=== PATIENT | female | born 1965 | race Caucasian/White ===

== ENCOUNTER 2017-03-26 13:50 | Emergency (ER) | payer OTHER | END 2017-03-26 18:12 | disposition home or self-care (01) | LOC: ERS 13:50 | DX: M54.16 Radiculopathy, lumbar region (principal); F17.210 Nicotine dependence, cigarettes, uncomplicated; Z79.899 Other long term (current) drug therapy | CPT/HCPCS: 99283 ==

== ENCOUNTER 2017-03-27 10:20 | Outpatient (CLI) | payer OTHER | END 2017-03-27 10:21 | disposition home or self-care (01) | LOC: BICRAD 10:20 | PROVIDERS: ATTEND Internal Medicine | DX: M25.562 Pain in left knee (principal); M25.762 Osteophyte, left knee ==

== ENCOUNTER 2017-04-09 12:22 | Outpatient (CLI) | payer OTHER ==
--- NOTE | 2017-04-09 15:49 | MRI ---
MRI LUMBAR SPINE NONCONTRAST: History: Low back pain with left leg radiculopathy. FINDINGS: Radiographs are not available for direct correlation, therefore, the lower lumbar type vertebrae will be designated at L5 with the remaining numbered accordingly. The conus medullaris has a normal appearance. There is disc desiccation of intervertebral discs and p rominent multilevel discogenic endplate changes. T12-L1, L1-2: Mild osteophytosis is present. The central canal and neural foramina are patent. L2-3: Posterior disc bulge, along with facet joint hypertrophy and ligamentous ==== result in mild st enosis of the central canal and each neural foramen. L3-4: Posterior disc bulge, along with facet joint hypertrophy and ligamentous thickening results in mild stenosis of the central canal. There is moderate right and mild left foraminal stenosis. L4-5: Minimal disc bulge is present. The thecal sac remains patent. There is moderate right and mild left foraminal stenosis. L5-S1: Minimal disc bulge is present. The thecal sac remains patent. Degenerative changes result in s evere bilateral foraminal stenosis. IMPRESSION: Prominent multilevel degenerative changes throughout the lumbar spine. Stenoses are most severe at ea ch neural foramen of the lumbosacral junction. Clinical correlation regarding each L5 dermatome is re quired. POS: [facility]
== END 2017-04-09 12:23 | disposition home or self-care (01) ==
LOC: SCSMRI 12:22
PROVIDERS: ATTEND Internal Medicine
DX: M47.26 Other spondylosis with radiculopathy, lumbar region (principal); M48.061 Spinal stenosis, lumbar region without neurogenic claudication
CPT/HCPCS: 72148

== ENCOUNTER 2017-07-20 14:37 | Outpatient (CLI) | payer OTHER | END 2017-07-20 14:38 | disposition home or self-care (01) | LOC: BICRAD 14:37 | PROVIDERS: ATTEND Neurological Surgery | DX: M47.26 Other spondylosis with radiculopathy, lumbar region (principal) | CPT/HCPCS: 72100 ==

== ENCOUNTER 2017-09-14 14:00 | Emergency (ER) | payer OTHER ==
--- NOTE | 2017-09-14 15:33 | CT ---
CT CERVICAL SPINE: HISTORY: Bilateral shoulder pain and neck pain after fall. FINDINGS: Noncontrast-enhanced CT images cervical spine demonstrate a loss of the normal lordotic curvature of the cervical spine. Anterior and posterior osteophytes are seen at C5-6 and C6-7. This is compatibl e with changes of spondylosis. The neural foramen are patent. IMPRESSION: C5-6 and C6-7 changes of spondylosis. No acute abnormality is seen. POS: [facility]
--- NOTE | 2017-09-14 15:34 | RAD ---
RIGHT ELBOW 4 VIEWS: Date: 09/14/17 HISTORY: Elbow injury. FINDINGS: There is some minimal enthesophyte formation of the epicondyles. There are no signs of fracture, disl ocation, or joint effusion. IMPRESSION: No acute findings. POS: [facility]
--- NOTE | 2017-09-14 15:34 | RAD ---
3 VIEWS LEFT SHOULDER: Date: 09/14/17 HISTORY: 52-year-old with left shoulder pain after injury. FINDINGS: AP internally, externally, and scapular Y views of left shoulder obtained. Three views of the left shoulder demonstrate no evidence of left shoulder fractures, subluxations, or bony lesions. IMPRESSION: Normal 3 views left shoulder. POS: [facility]
--- NOTE | 2017-09-14 15:35 | RAD ---
RIGHT KNEE 4 VIEWS: Date: 09/14/17 HISTORY: Bilateral knee pain. FINDINGS: No fracture, dislocation, or bony destruction is identified. Joint spaces are fairly well maintained. IMPRESSION: No acute process. POS: [facility]
--- NOTE | 2017-09-14 15:37 | RAD ---
3 VIEWS LUMBAR SPINE: Date: 09/14/17 COMPARISON: None. HISTORY: Pain, fall. FINDINGS: Five lumbar-type vertebral bodies are present with intact pedicles on frontal imaging. There is promi nent right lateral osteophyte formation at L3-4 and to a lesser degree L2-3 and L4-5. The lateral exa m demonstrates lower lumbar spine facet hypertrophy at L4-5 and L5-S1. There is multilevel disc space narrowing and anterior osteophyte formation, including L2-3, L3-4, L4-5, and L5-S1. No acute fractu re is evident. IMPRESSION: Multilevel degenerative change with no acute fracture or dislocation seen. POS: [facility]
--- NOTE | 2017-09-14 15:38 | RAD ---
3 VIEWS RIGHT SHOULDER: Date: 09/14/17 COMPARISON: None. HISTORY: Fall, trauma, pain. FINDINGS: There is mild degenerative change of the right AC joint. There is no widening of the AC or CC intersp eli. Postoperative anchors are seen overlying the humeral head. No acute fracture or evidence of disl ocation is seen. There is corticated osseous irregularity involving the region of the greater tuberosity suggesting re mote post-traumatic change and/or postoperative change. IMPRESSION: Chronic findings as described above. No displaced fracture or evidence of dislocation is seen. POS: [facility]
--- NOTE | 2017-09-14 15:39 | RAD ---
4 VIEWS LEFT KNEE: Date: 09/14/17 HISTORY: Fall with left knee injury. FINDINGS: AP, lateral, and both oblique views of the left knee obtained. FINDINGS: Four views of the left knee demonstrate no evidence of left knee fractures, subluxations, or bony les ions. IMPRESSION: Normal 4ivews left knee. POS: [facility]
== END 2017-09-14 15:29 | disposition home or self-care (01) ==
LOC: ERS 14:00
DX: S16.1XXA Strain of muscle, fascia and tendon at neck level, initial encounter (principal); S80.02XA Contusion of left knee, initial encounter; S80.01XA Contusion of right knee, initial encounter; S40.012A Contusion of left shoulder, initial encounter; S40.011A Contusion of right shoulder, initial encounter; M25.521 Pain in right elbow; I47.1 Supraventricular tachycardia; Z87.891 Personal history of nicotine dependence; Z79.899 Other long term (current) drug therapy; W01.10XA Fall on same level from slipping, tripping and stumbling with subsequent striking against unspecified object, initial encounter; Y92.828 Other wilderness area as the place of occurrence of the external cause
CPT/HCPCS: 72100; 72125

== ENCOUNTER 2017-09-21 05:59 | Day surgery (SDC) | payer OTHER ==
[2017-09-21 06:33] LABS: #Eosinphils 0.1 thou/uL (0.0-0.7); #Lymphocytes 1.6 thou/uL (1.20-3.40); #Monocytes 0.6 thou/uL (0.11-0.59); #Neutrophils 3.7 thou/uL (1.40-6.50); %Basophils 0.4 % (0.0-1.0); %Eosinophils 1.5 % (0.0-10.0); %Lymphocytes 26.4 % (21.0-51.0); %Monocytes 10.1 % (0.0-10.0); %Neutrophils 61.8 % (42.0-75.0); Hemoglobin 15.2 g/dL (12.0-16.0); Mean Corpuscular HGB CONC 34.6 g/dL (32.0-36.0); Mean Corpuscular Hemoglobin 33.3 pg (27.0-31.0); Mean Corpuscular Volume 96.3 fl (81.0-99.0); Mean Platelet Volume 7.6 fL (7.4-10.4); Platelet Count 175 thou/uL (130-400); RBC Distribution Width 11.4 % (11.5-14.5); Red Blood Cell (RBC) Count 4.56 mill/uL (4.20-5.40)
[2017-09-21] MEDS ORDERED: Lidocaine 1% (PF) 30 ML VIAL ONE (06:41)
[2017-09-21 07:01] LABS: Anion Gap 14 mmol/L (10-20); BUN (Urea Nitrogen) 14 mg/dL (9.8-20.1); Calc. Creatinine Clearance 0 mL/min (70-130); Calcium 9.4 mg/dL (7.8-10.44); Carbon Dioxide 26 mmol/L (22-29); Chloride 105 mmol/L (98-107); Estimated GFR-MDRD 87; Glucose 91 mg/dL (70-105); Potassium 3.5 mmol/L (3.5-5.1); Sodium 141 mmol/L (136-145)
[2017-09-21] MEDS ORDERED: Phenylephrine HCL 10 MG/ML VIAL ONE (08:41)
[2017-09-21] MEDS ORDERED: Propofol 500 MG/50 ML VIAL ONE ×3 (08:46→10:10)
[2017-09-21] MEDS ORDERED: Midazolam HCl 2 mg/2 ml Vial ONE (09:07)
[2017-09-21] MEDS ORDERED: Heparin 10,000 UNITS/1 ML VIAL ONE (09:37)
[2017-09-21] MEDS ORDERED: Isoproterenol 0.2 MG/1 ML AMP ONE (09:44)
[2017-09-21] MEDS ORDERED: Fentanyl 100 MCG/2 ML VIAL ONE (11:06)
[2017-09-21] MEDS ORDERED: PROPOFOL 200 MG/20 ML VIAL ONE (12:28)
--- NOTE | 2017-09-21 12:48 | EKG ---
Test Reason : PREOP Blood Pressure : / mmHG Vent. Rate : 070 BPM Atrial Rate : 070 BPM P-R Int : 162 ms QRS Dur : 084 ms QT Int : 398 ms P-R-T Axes : 062 086 053 degrees QTc Int : 429 ms Normal sinus rhythm Normal ECG When compared with ECG of 25-SEP-2016 13:31, Non-specific change in ST segment in Inferior leads Confirmed by PAGE LI ([id number]), international editorial producer CARL NAVARRO ([id number]) on 09/21/2017 12:47:38 PM Referred By: JJ Confirmed By:PAGE LI
--- NOTE | 2017-09-21 16:46 | EKG ---
Test Reason : POSTOP Blood Pressure : / mmHG Vent. Rate : 062 BPM Atrial Rate : 062 BPM P-R Int : 134 ms QRS Dur : 086 ms QT Int : 458 ms P-R-T Axes : 048 077 053 degrees QTc Int : 464 ms Normal sinus rhythm T wave abnormality, consider anterior ischemia Prolonged QT Abnormal ECG When compared with ECG of 21-SEP-2017 06:53, (Unconfirmed) T wave changes anteriroly more prominent anteriorly. Confirmed by PAGE LI ([id number]) on 09/21/2017 4:45:34 PM Referred By: JJ Confirmed By:PAGE LI
--- NOTE | 2017-09-21 19:13 | OP ---
DATE OF PROCEDURE: 09/21/2017 ELECTROPHYSIOLOGY STUDY AND RADIOFREQUENCY ABLATION REPORT REFERRING PHYSICIAN: Camilo Borja MD REASON FOR STUDY: Ms. Mchugh is a 52-year-old woman with recurrent narrow complex SVT on occasion is noted. PROCEDURE IN DETAIL: The patient received deep sedation by Anesthesia specialist. After adequate le bonita of sedation achieved, both femoral venous areas were prepped, draped and anesthetized using subcu taneous lidocaine. The left femoral vein was accessed using ultrasound guidance x2 with 2 short 6 an d a 7-Tristanian sheaths were introduced. Through this, a decapolar and an octapolar catheter were advan renzo to the CS and right ventricular/His bundle/right atrial area. Pacing, mapping and recording were performed in each location. Following findings were noted. Baseline cycle length 892, ND 180, QRS 75, QT 433, HV 43 milliseconds. The AV Wenckebach cycle was noted at 340 milliseconds. No preexcita tion noted. Actually, Wenckebach cycle was 300 milliseconds at baseline with concentric retrograde V A activation. AV hema ERP was 600/240. 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 Isuprel was administered at this point and with burst atrial pacing, we were able to induce tachycardia, cons ent with AV hema reentry tachycardia with very short RP interval. Following that, burst ventricular pacing was attempted that terminated the arrhythmia. At this point, the right femoral vein was also accessed with a multipurpose needle and an 8-Tristanian short sheath was introduced. Through this, a 4- mm ablation catheter was advanced to the right atrium. 3D mapping of the right atrium, His bundle ar ea and CS area was obtained with the Carto system. Following that, slow pathway modification was per formed using a total of 7 johnson were delivered. Over one mid johnson were delivered each time and junc tional beats were observed during the ablation. Following that, the induction protocol was repeated on and off either. No reinducibility of AV hema reentry tachycardia was found. The cardiac silhouette did not change throughout the study and the patient remained stable. Post-ablation on Isuprel, Wenckebach cycle length was 250 milliseconds. The AV ERP was 400/180 on Is uprel, but no evidence of slow pathway was found at this time. CONCLUSION: 1. AV hema reentry tachycardia, on Isuprel. 2. Successful slow pathway modification with inducibility of the AV hema reentry tachycardia. 3. No residual slow pathway present. 4. Normal AV hema and His-Purkinje system function pre and post-ablation. 5. No evidence of accessory pathway. 6. No change in cardiac silhouette. The patient tolerated the procedure well. PLAN: Routine postoperative care. Titrate off AV hema blockers.
== END 2017-09-21 14:10 | disposition home or self-care (01) ==
LOC: SDC 05:59
PROVIDERS: ATTEND Internal Medicine Cardiovascular Disease
DX: I47.1 Supraventricular tachycardia (principal); I10 Essential (primary) hypertension; Z88.4 Allergy status to anesthetic agent; Z88.5 Allergy status to narcotic agent; Z79.899 Other long term (current) drug therapy
CPT/HCPCS: 36415; 76942; 80048; 85025; 85610; 85730; 93005; 93010; 93613; 93621; 93623; 93653; 96374; C1730; C1769; J1644; J2001; J2250; J2370; J2704; J3010

== ENCOUNTER 2018-05-20 13:46 | Outpatient (CLI) | payer OTHER ==
--- NOTE | 2018-05-20 14:27 | RAD ---
CERVICAL SPINE THREE VIEWS: History: Cervical radiculopathy. Spinal stenosis. FINDINGS: There is loss of cervical lordosis and mild reversal. Multilevel degenerative changes are seen, most prominent at C5-6 and C6-7 levels. No fracture, subluxation or bony destruction is identified. IMPRESSION: Cervical spondylosis. POS: [facility]
--- NOTE | 2018-05-20 16:17 | MRI ---
MRI CERVICAL SPINE WITHOUT CONTRAST 05/20/18 HISTORY: Cervical spinal stenosis. COMPARISON: None. TECHNIQUE: MRI cervical spine is performed without intravenous gadolinium administration. Multisequential, multi planar imaging is performed. FINDINGS: There is straightening of the normal cervical lordosis. There is no significant STIR hyperintensity t o suggest vertebral body edema from fracture or MR evidence of ligamentous injury. There is evidence of subtle T1 hypointensity with associated T2 and STIR hyperintensity along the inferior end plate of C5 and superior end plate of C7 suggesting Modic change. Possible small Schmorl's node along the sup erior left aspect of C7 is noted. The visualized brain parenchyma, cervicomedullary junction, cervica l cord and the upper thoracic cord has a normal size and signal intensity. Partial opacification of the right mastoid air cells. C2-C3: No significant central canal stenosis. Foramina are patent. C3-C4: No significant central canal stenosis. Right neural foramen is patent. Mild left foraminal mingo rowing due to uncovertebral hypertrophy. C4-C5: No significant central canal stenosis. Foramina are patent. C5-C6: Broad based disc osteophyte complex abuts the thecal sac and effaces the ventral subarachnoid space. There is deformity of the cervical cord without cord signal abnormality. There is mild to mod erate central canal stenosis. Neural foramina are patent bilaterally. C6-C7: There is a broad based disc osteophyte complex with a small right paracentral component. Ventr al subarachnoid space is effaced. Mild mass effect upon the cervical cord. Mild central canal stenosi s. Neural foramina are patent. C7-T1: No significant central canal stenosis. Foramina are patent. IMPRESSION: Degenerative changes of the cervical spine as detailed above. POS: [facility]
== END 2018-05-20 13:47 | disposition home or self-care (01) ==
LOC: BICMRI 13:46
PROVIDERS: ATTEND Internal Medicine
DX: M47.22 Other spondylosis with radiculopathy, cervical region (principal)
CPT/HCPCS: 72040; 72141

== ENCOUNTER 2018-08-17 22:18 | Emergency (ER) | payer OTHER ==
[2018-08-17] MEDS ORDERED: Acetaminophen 500 MG TAB ONE (22:54)
--- NOTE | 2018-08-17 23:38 | ULT ---
US Venous Doppler Lt Unilat History: [Left leg pain] Comparison: None. Findings: Real-time grayscale, color, and spectral analysis left lower extremity venous system was pe rformed. The common femoral, femoral, proximal portions greater saphenous and deep femoral veins as well as of the popliteal and posterior tibial veins were interrogated. Normal flow, augmentation, and compression. Impression: No deep venous thrombosis.
[2018-08-17] MEDS ORDERED: Dexamethasone 10 MG/ML VIAL ONE (23:40)
== END 2018-08-18 00:04 | disposition home or self-care (01) ==
LOC: ERS 22:18
DX: M70.71 Other bursitis of hip, right hip (principal); M79.662 Pain in left lower leg; I47.1 Supraventricular tachycardia; M19.90 Unspecified osteoarthritis, unspecified site; F17.210 Nicotine dependence, cigarettes, uncomplicated; Z79.899 Other long term (current) drug therapy
CPT/HCPCS: 96372; J1100

== ENCOUNTER 2018-12-29 13:43 | Outpatient (CLI) | payer OTHER ==
--- NOTE | 2018-12-29 15:31 | MRI ---
MRI Lumbar Spine Noncontrast: HISTORY: Bilateral lumbar radiculopathy and lower back pain. COMPARISON: 04/09/2017 FINDINGS: Subcentimeter increased T2-weighted signal intensity foci are seen in each kidney difficult to charac terize but may represent cysts. Follow-up renal sonogram is suggested for further evaluation. Conus medullaris is normal in morphology and terminates at the T11-12 level. There findings again sug gestive of a fatty filum terminale. There is generalized heterogeneity of the bone marrow which was also present on the prior exam endpla te degenerative changes are seen at multiple levels. Rounded focus of increased T1 and T2-weighted signal intensity is seen in the L3 vertebral body which may represent a small hemangioma versus focal area of fat. T10-11, T11-12, T12-L1 levels: Mild disc osteophyte complexes are present at these levels resulting m ild effacement of the ventral aspect of the thecal sac. Neural foramina at these levels appear patent L1-2: Mild disc osteophyte complex is present. There is no significant central canal narrowing. The n eural foramina are patent L2-3: There is a mild disc osteophyte complex overall similar to the prior exam. Mild facet hypertrop hic changes are seen. Slight effacement of the anterior aspect of thecal sac. Neural foramina are patent. L3-4: Again noted is a mild disc osteophyte complex and facet hypertrophic changes. There is mild gen eralized narrowing of the central spinal canal with flattening of the anterior aspect of the thecal sac. The left neural foramen is patent with mild right-sided neural foraminal narrowing. L4-5: Mild broad-based disc osteophyte complex is again seen with facet hypertrophic changes. There i s slight flattening of the anterior aspect of the thecal sac. Mild to moderate bilateral neural foraminal narrowing is present. L5-S1: There is mild loss of intervertebral disc height. Broad-based disc aspect complex is present w ith facet hypertrophic changes noted. There is no significant narrowing of the central spinal canal, but there is severe bilateral neural foraminal narrowing again present not significantly progr essed from prior exam. IMPRESSION: 1. Multilevel degenerative changes of the lumbar spine not significantly progressed when compared to the prior study in 2017. 2. Subcentimeter hyperintense bilateral renal lesions difficult to actually characterize on this exam but may represent small renal cysts.
--- NOTE | 2018-12-29 15:32 | MMO ---
Bilateral MAMMO Bilat Screen [facility]. CLINICAL HISTORY: Patient is 53 years old and is seen for screening. The patient has the following family history of breast cancer: maternal grandmother, kidney. The patient has no personal history of cancer. VIEWS: The views performed were: bilateral craniocaudal with tomosynthesis; bilateral mediolateral oblique with tomosynthesis; and left mediolateral oblique. FILMS COMPARED: The present examination has been compared to prior imaging studies performed at [facility] on 01/27/2014, 02/16/2015 and 09/25/2015, and at [facility] on 12/30/2012. This study has been interpreted with the assistance of computer-aided detection. MAMMOGRAM FINDINGS: The breasts are heterogeneously dense, which could obscure a lesion on mammography. Benign calcifications are noted bilaterally. There are no suspicious masses, suspicious calcifications, or new areas of architectural distortion. IMPRESSION: THERE IS NO MAMMOGRAPHIC EVIDENCE OF MALIGNANCY. A ROUTINE FOLLOW-UP MAMMOGRAM IN 1 YEAR IS RECOMMENDED. THE RESULTS OF THIS EXAM WERE SENT TO THE PATIENT. ACR BI-RADS Category 2 - Benign finding MAMMOGRAPHY NOTE: 1. A negative mammogram report should not delay a biopsy if a dominant of clinically suspicious mass is present. 2. Approximately 10% to 15% of breast cancers are not detected by mammography. 3. Adenosis and dense breasts may obscure an underlying neoplasm. Reported by: OLI ELKINS MD Electonically Signed: [id number]
--- NOTE | 2018-12-29 15:48 | RAD ---
XR Lumbar Spine Min 4 View History: Lumbar spondylolisthesis Comparison: MRI same day Findings: Moderate levoscoliosis lumbar spine. Degenerative facet arthropathy L3-L5. Large bridging r ight lateral osteophytes L3-L5 with degenerative disc space height loss. No listhesis. No translation with flexion or extension. Moderate degenerative disease right SI joint. Paraspinal soft tissues are unremarkable. Impression: Mild to moderate levoscoliosis and degenerative changes. No acute osseous abnormality. No translation with flexion or extension.
== END 2018-12-29 13:44 | disposition home or self-care (01) ==
LOC: BICMAMMO 13:43
PROVIDERS: ATTEND Internal Medicine
DX: Z12.31 Encounter for screening mammogram for malignant neoplasm of breast (principal); M47.26 Other spondylosis with radiculopathy, lumbar region; M43.16 Spondylolisthesis, lumbar region; M41.9 Scoliosis, unspecified; N28.9 Disorder of kidney and ureter, unspecified; Z80.3 Family history of malignant neoplasm of breast
CPT/HCPCS: 72110; 72148; 77063; 77067

== ENCOUNTER 2019-01-07 09:32 | Outpatient (CLI) | payer OTHER ==
--- NOTE | 2019-01-07 10:42 | ULT ---
Exam: Bilateral renal ultrasound HISTORY: Disorder of the kidney COMPARISON: None FINDINGS: Right kidney: Limited evaluation the cortex due to shadowing. No obvious cortical masses. No hydronep hrosis Right kidney measurements: 6.0 x 5.1 x 10.3 cm. Left kidney: Limited evaluation the cortex due to shadowing. No obvious cortical masses. No hydroneph rosis. Left kidney measurements 4.5 x 5.0 x 8.7 cm. Urinary bladder: Decompressed. Limited evaluation the mucosa. IMPRESSION: No hydronephrosis.
== END 2019-01-07 09:33 | disposition home or self-care (01) ==
LOC: ULT 09:32
PROVIDERS: ATTEND Internal Medicine
DX: N28.9 Disorder of kidney and ureter, unspecified (principal)
CPT/HCPCS: 76770

== ENCOUNTER 2020-03-27 14:34 | Outpatient (CLI) | payer MEDICARE ==
--- NOTE | 2020-03-27 16:01 | MMO ---
Bilateral MAMMO Bilat Screen [facility]. CLINICAL HISTORY: Patient is 54 years old and is seen for screening. The patient has the following family history of breast cancer: maternal grandmother, kidney. The patient has no personal history of cancer. VIEWS: The views performed were: bilateral craniocaudal with tomosynthesis and bilateral mediolateral oblique with tomosynthesis. FILMS COMPARED: The present examination has been compared to prior imaging studies performed at [facility] on 01/27/2014, 02/16/2015, 09/25/2015 and 12/29/2018. This study has been interpreted with the assistance of computer-aided detection. MAMMOGRAM FINDINGS: The breasts are heterogeneously dense, which could obscure a lesion on mammography. There are no suspicious masses, suspicious calcifications, or new areas of architectural distortion. IMPRESSION: THERE IS NO MAMMOGRAPHIC EVIDENCE OF MALIGNANCY. A ROUTINE FOLLOW-UP MAMMOGRAM IN 1 YEAR IS RECOMMENDED. THE RESULTS OF THIS EXAM WERE SENT TO THE PATIENT. ACR BI-RADS Category 1 - Negative MAMMOGRAPHY NOTE: 1. A negative mammogram report should not delay a biopsy if a dominant of clinically suspicious mass is present. 2. Approximately 10% to 15% of breast cancers are not detected by mammography. 3. Adenosis and dense breasts may obscure an underlying neoplasm. Reported by: OLI ELKINS MD Electonically Signed: [id number]
== END 2020-03-27 14:35 | disposition home or self-care (01) ==
LOC: BICMAMMO 14:34
PROVIDERS: ATTEND Internal Medicine
DX: Z12.31 Encounter for screening mammogram for malignant neoplasm of breast (principal); Z80.3 Family history of malignant neoplasm of breast
CPT/HCPCS: 77063; 77067

== ENCOUNTER 2022-08-07 06:06 | Day surgery (SDC) | payer OTHER ==
[2022-08-04 11:12] VITALS: BMI 39.3
[2022-08-07] MEDS ORDERED: Bupivacaine/Epinephrine 0.25% 30 ML VIAL ONE (06:47)
[2022-08-07] MEDS ORDERED: Dexmedetomidine 200 MCG/2 ML VIAL ONE (07:02)
[2022-08-07] MEDS ORDERED: Magnesium 5 GM/10 ML VIAL ONE (07:02)
[2022-08-07] MEDS ORDERED: fentaNYL PF 100 MCG/2 ML SYRINGE ONE (07:03)
[2022-08-07] MEDS ORDERED: Ketamine 50 MG/ML (10ML VIAL) ONE (07:13)
[2022-08-07] MEDS ORDERED: Ketorolac Tromethamine 30 MG/ML VIAL ONE (07:22)
[2022-08-07] MEDS ORDERED: Acetaminophen 500 MG TAB ONE (07:22)
[2022-08-07] MEDS ORDERED: Sodium Chloride 0.9% 100 ML ONE (07:22)
[2022-08-07] MEDS ORDERED: CEFAZOLIN 2 GM VIAL ONE (07:22)
[2022-08-07] MEDS ORDERED: Ondansetron PF 4 MG/2 ML Vial ONE (07:40)
[2022-08-07] MEDS ORDERED: NEOSTIGMINE 3 MG/3 ML SYR 3 MG/3 ML SYRINGE ONE (07:40)
[2022-08-07] MEDS ORDERED: Glycopyrrolate 0.2 MG/ML 5 ML SYRINGE ONE (07:40)
[2022-08-07] MEDS ORDERED: PROPOFOL 200 MG/20 ML VIAL ONE (07:40)
[2022-08-07] MEDS ORDERED: Rocuronium Bromide 10 MG/ML (10ML VIAL) ONE (07:40)
[2022-08-07] MEDS ORDERED: Lidocaine 1% PF 5 ML VIAL ONE (07:40)
[2022-08-07] MEDS ORDERED: Dexamethasone 20 MG/5 ML VIAL ONE (07:40)
[2022-08-07] MEDS ORDERED: PHENYLEPHRINE-NS 100 MCG/ML 10 ML SYRINGE ONE (07:40)
[2022-08-07] MEDS ORDERED: SUGAMMADEX SODIUM 200 MG/2 ML VIAL ONE (08:35)
== END 2022-08-07 11:02 | disposition home or self-care (01) ==
LOC: SDC 06:06
PROVIDERS: ATTEND Specialist
PROC: 0FT44ZZ Resection of Gallbladder, Percutaneous Endoscopic Approach (ICD-10-PCS; principal; 2022-08-07)
DX: K80.10 Calculus of gallbladder with chronic cholecystitis without obstruction (principal); M79.7 Fibromyalgia; I10 Essential (primary) hypertension; Z87.891 Personal history of nicotine dependence; Z79.899 Other long term (current) drug therapy; Z88.0 Allergy status to penicillin; Z88.1 Allergy status to other antibiotic agents; Z88.5 Allergy status to narcotic agent; Z88.6 Allergy status to analgesic agent; Z91.018 Allergy to other foods
CPT/HCPCS: 47562; C1889; 88304; J1100; J1885; J2405; J2704; J3475; J3490

== ENCOUNTER 2023-01-28 13:33 | Outpatient (CLI) | payer OTHER | END 2023-01-28 13:34 | disposition home or self-care (01) | LOC: BICULT 13:33 | PROVIDERS: ATTEND Internal Medicine | DX: N63.20 Unspecified lump in the left breast, unspecified quadrant (principal) ==

== ENCOUNTER 2025-01-12 10:19 | Outpatient (CLI) | payer MEDICARE | END 2025-01-12 10:20 | disposition home or self-care (01) | LOC: BICMAMMO 10:19 | PROVIDERS: ATTEND Internal Medicine | DX: Z12.31 Encounter for screening mammogram for malignant neoplasm of breast (principal); Z12.2 Encounter for screening for malignant neoplasm of respiratory organs; Z78.0 Asymptomatic menopausal state; F17.210 Nicotine dependence, cigarettes, uncomplicated; Z80.3 Family history of malignant neoplasm of breast | CPT/HCPCS: 71271; 77063; 77067; 77080 ==